=== PATIENT | male | born 1980 | race Caucasian/White ===

== ENCOUNTER 2016-11-25 11:15 | Emergency (ER) | payer MEDICAID ==
[~2016-11-25] VITALS: Ht 175.3 cm; Wt 65.8 kg
[2016-11-25 11:52] VITALS: BP 129/76
== END 2016-11-25 14:14 | disposition left against medical advice (07) ==
LOC: ED 11:15
DX: Z53.21 Procedure and treatment not carried out due to patient leaving prior to being seen by health care provider (principal)